=== PATIENT | female | born 1995 ===

== ENCOUNTER → 2017-11-11 | Outpatient (CLI) | payer OTHER | END | disposition home or self-care (01) | LOC: C.LABMFLN 16:27 | PROVIDERS: ATTEND Physician Assistant | DX: J02.9 Acute pharyngitis, unspecified (principal) ==

== ENCOUNTER → 2017-12-20 | Outpatient (CLI) | payer OTHER ==
[2017-12-20 18:45] LABS: HEMOGLOBIN 14.6 g/dL (12.0-16.0); MEAN CELL VOLUME 86.7 fL (80-100); MEAN CORPUSCULAR HEMOGLOBIN 28.1 pg (25-34); MEAN CORPUSCULAR HGB CONC 32.4 g/dl (32-36); MEAN PLATELET VOLUME 10.4 fL (7.4-10.4); PLATELET COUNT 260 K/uL (130-400); RED CELL DISTRIBUTION WIDTH CV 14.7 % (11.5-14.5); RED CELL DISTRIBUTION WIDTH SD 46.1 fL (36.4-46.3); RETIC COUNT % 1.2 % (0.5-2.0)
[2017-12-20 19:20] LABS: ALBUMIN 4.2 gm/dl (3.4-5.0); ALT/SGPT 18 U/L (12-78); BLOOD UREA NITROGEN 7 mg/dl (7-18); CALCIUM 9.3 mg/dl (8.5-10.1); CARBON DIOXIDE 26 mmol/L (21-32); CREATININE 0.77 mg/dl (0.60-1.20); GLUCOSE 70 mg/dl (70-99); POTASSIUM 4.3 mmol/L (3.5-5.1); SODIUM 141 mmol/L (136-145)
[2017-12-20 19:30] LABS: ALKALINE PHOSPHATASE 143 U/L (45-117); AST/SGOT 12 U/L (15-37); TOTAL PROTEIN 8.1 gm/dl (6.4-8.2)
[2017-12-20 19:47] LABS: FOLLICLE STIMULAT HORMONE 6.1 IU/L; LUTEINIZING HORMONE 0.99 IU/L
== END | disposition home or self-care (01) ==
LOC: C.LABMFLN 11:36
PROVIDERS: ATTEND Family Medicine
DX: N91.2 Amenorrhea, unspecified (principal)